=== PATIENT | male | born 1980 | race Caucasian/White ===

== ENCOUNTER 2021-12-13 11:36 | Emergency (ER) | payer SELFPAY ==
[~2021-12-13] VITALS: Ht 177.8 cm; Wt 98.0 kg
[2021-12-13] MEDS ORDERED: ASPIRIN CHEWABLE 81 MG TABLET. PO ONE (12:00)
[2021-12-13] MEDS ORDERED: IV NORMAL SALINE 1000ML BAG 1,000 ML IV ONE (12:00)
[2021-12-13] MEDS ORDERED: NITROGLYCERIN SUBLINGUAL 0.4 MG BOTTLE OF 25. SL PRN (12:00)
[2021-12-13] MEDS ORDERED: ONDANSETRON PF 4 MG/2 ML VIAL. IVP ONE (12:00)
[2021-12-13 12:05] LABS: BASO # 0.1 x10^3/uL (0.0-0.2); BASO % 1 % (0-3); EOS % 0 % (0-3); HEMATOCRIT 45.5 % (39.0-53.0); HEMOGLOBIN 15.9 g/dL (13.0-17.5); LYMPH % 9 % (24-48); MEAN CORPUSCULAR HEMOGLOBIN 31 pg (25-35); MEAN CORPUSCULAR HGB CONC 35 g/dL (31-37); MEAN CORPUSCULAR VOLUME 90 fL (79-100); MONO # 0.8 x10^3/uL (0.0-1.1); MONO % 7 % (0-9); NEUT # 9.8 x10^3/uL (1.8-7.7); NEUT % 84 % (31-73); PLATELET COUNT 316 x10^3/uL (140-400); RED BLOOD COUNT 5.08 x10^6/uL (4.30-5.70); RED CELL DISTRIBUTION WIDTH 13.5 % (11.5-14.5); WHITE BLOOD COUNT 11.7 x10^3/uL (4.0-11.0)
[2021-12-13 12:14] LABS: CALCIUM 8.9 mg/dL (8.5-10.1); CREATININE 0.9 mg/dL (0.7-1.3); GFR 92.1; POTASSIUM 3.9 mmol/L (3.5-5.1)
--- NOTE | 2021-12-13 12:16 | RAD ---
EXAMINATION: XR CHEST 1V CLINICAL HISTORY: Chest pain. EXAM DATE/TIME: 12/13/2021 12:00 PM COMPARISON: None FINDINGS: Lines, Tubes, and Devices: None. Cardiomediastinal Silhouette: Normal heart size. Lungs and Pleura: No evidence of focal airspace consolidation or pleural effusion. Pulmonary vasculat ure unremarkable. Bones and Soft Tissues: Degenerative changes in the thoracic spine. IMPRESSION: No evidence of acute cardiopulmonary abnormality. Electronically signed by: Young Casas DO (12/13/2021 12:13 PM) [id number]
[2021-12-13 12:20] LABS: ALBUMIN 4.5 g/dL (3.4-5.0); ALBUMIN/GLOBULIN RATIO 1.2 (1.0-1.7); TOTAL BILIRUBIN 0.4 mg/dL (0.2-1.0); TOTAL PROTEIN 8.4 g/dL (6.4-8.2)
--- NOTE | 2021-12-13 12:43 | PHYS DOC ---
Past Medical History Past Surgical History: No Surgical History Adult General Chief Complaint Chief Complaint: CHEST PAIN HPI HPI Patient is a 41 year old male presenting to the emergency department for evaluation of chest pain that he says started approximately 1030 this morning while he was at work at [employer]. He said he was walking and felt that he may have been exerting himself and he felt a tightness in his left lateral chest that caused him tingling in his left arm as well as nausea and diaphoresis but no vomiting or shortness of breath. He says there is no radiation and he does feel better since he is at rest. He says that he had a stress test in his 20s but no recent cardiac or stratification. Patient has a history of hypertension but ran out of his hydrochlorothiazide lisinopril and has not been on any medications. He denies hyperlipidemia or diabetes. He does smoke cigarettes and he thinks that his father may have heart disease but he made it sound as if he is not sure and he does not know him very well. He is in no acute distress with normal vital signs other than hypertension noted. Review of Systems Review of Systems Constitutional: Denies fever or chills [] Eyes: Denies change in visual acuity, redness, or eye pain [] HENT: Denies nasal congestion or sore throat [] Respiratory: Denies cough or shortness of breath [] Cardiovascular: +CP, diaphoresis GI: Denies abdominal pain.+ nausea. No vomiting, bloody stools or diarrhea [] : Denies dysuria or hematuria [] Musculoskeletal: Denies back pain or joint pain [] Integument: Denies rash or skin lesions [] Neurologic: Denies headache, focal weakness or sensory changes [] All other systems were reviewed and found to be within normal limits, except as documented in this note. Current Medications Current Medications Current Medications Medications (Trade) Dose Ordered Sig/Benny Start Time Stop Time Status Last Admin Dose Admin Aspirin (Aspirin Chewable) 324 mg 1X ONCE 12/13/21 12:00 12/13/21 12:01 DC 12/13/21 12:10 324 MG Hydrochlorothiazide (Microzide) 12.5 mg 1X ONCE 12/13/21 15:00 12/13/21 15:01 Lisinopril (Prinivil) 20 mg 1X ONCE 12/13/21 15:00 12/13/21 15:01 Nitroglycerin (Nitrostat) 0.4 mg PRN Q5MIN PRN 12/13/21 12:00 12/13/21 12:14 0.4 MG Ondansetron HCl (Zofran) 4 mg 1X ONCE 12/13/21 12:00 12/13/21 12:01 DC 12/13/21 12:11 4 MG Sodium Chloride 1,000 ml @ 1,000 mls/hr 1X ONCE 12/13/21 12:00 12/13/21 12:59 DC 12/13/21 12:11 1,000 MLS/HR Allergies Allergies Allergies Coded Allergies Type Severity Reaction Last Updated Verified No Known Drug Allergies 12/13/21 No Physical Exam Physical Exam Constitutional: Well developed, well nourished, no acute distress, non-toxic appearance. [] HENT: Normocephalic, atraumatic, bilateral external ears normal, oropharynx moist, no oral exudates, nose normal. [] Eyes: PERRLA, EOMI, conjunctiva normal, no discharge. [] Neck: Normal range of motion, no tenderness, supple, no stridor. [] Cardiovascular:Heart rate regular rhythm, no murmur [] Lungs & Thorax: Bilateral breath sounds clear to auscultation [] Abdomen: Bowel sounds normal, soft, no tenderness, no masses, no pulsatile masses. [] Skin: Warm, dry, no erythema, no rash. [] Back: No tenderness, no CVA tenderness. [] Extremities: No tenderness, no cyanosis, no clubbing, ROM intact, no edema. [] Neurologic: Alert and oriented X 3, normal motor function, normal sensory function, no focal deficits noted. [] Current Patient Data Vital Signs Vital Signs Date Time Temp Pulse Resp B/P (MAP) Pulse Ox O2 Delivery O2 Flow Rate FiO2 12/13/21 14:44 82 17 171/106 (127) 99 Room Air 12/13/21 11:44 98.5 98.5 Lab Values Laboratory Tests Test 12/13/21 11:50 12/13/21 14:08 White Blood Count 11.7 x10^3/uL (4.0-11.0) H Red Blood Count 5.08 x10^6/uL (4.30-5.70) Hemoglobin 15.9 g/dL (13.0-17.5) Hematocrit 45.5 % (39.0-53.0) Mean Corpuscular Volume 90 fL (79-100) Mean Corpuscular Hemoglobin 31 pg (25-35) Mean Corpuscular Hemoglobin Concent 35 g/dL (31-37) Red Cell Distribution Width 13.5 % (11.5-14.5) Platelet Count 316 x10^3/uL (140-400) Neutrophils (%) (Auto) 84 % (31-73) H Lymphocytes (%) (Auto) 9 % (24-48) L Monocytes (%) (Auto) 7 % (0-9) Eosinophils (%) (Auto) 0 % (0-3) Basophils (%) (Auto) 1 % (0-3) Neutrophils # (Auto) 9.8 x10^3/uL (1.8-7.7) H Lymphocytes # (Auto) 1.0 x10^3/uL (1.0-4.8) Monocytes # (Auto) 0.8 x10^3/uL (0.0-1.1) Eosinophils # (Auto) 0.0 x10^3/uL (0.0-0.7) Basophils # (Auto) 0.1 x10^3/uL (0.0-0.2) D-Dimer (Nicole) < 0.27 ug/mlFEU Sodium Level 140 mmol/L (136-145) Potassium Level 3.9 mmol/L (3.5-5.1) Chloride Level 102 mmol/L (98-107) Carbon Dioxide Level 28 mmol/L (21-32) Anion Gap 10 (6-14) Blood Urea Nitrogen 9 mg/dL (8-26) Creatinine 0.9 mg/dL (0.7-1.3) Estimated GFR (Cockcroft-Gault) 92.1 BUN/Creatinine Ratio 10 (6-20) Glucose Level 103 mg/dL (70-99) H Calcium Level 8.9 mg/dL (8.5-10.1) Total Bilirubin 0.4 mg/dL (0.2-1.0) Aspartate Amino Transferase (AST) 33 U/L (15-37) Alanine Aminotransferase (ALT) 35 U/L (16-63) Alkaline Phosphatase 87 U/L (46-116) Troponin I High Sensitivity 12 ng/L (4-75) 12 ng/L (4-75) XM-Mxf-Y-Type Natriuretic Peptide 40 pg/mL (0-124) Total Protein 8.4 g/dL (6.4-8.2) H Albumin 4.5 g/dL (3.4-5.0) Albumin/Globulin Ratio 1.2 (1.0-1.7) Lipase 57 U/L (73-393) L Laboratory Tests 12/13/21 11:50 Laboratory Tests 12/13/21 11:50 EKG EKG Sinus rhythm at 87 bpm with normal axis no deviation no ST elevation or depression and normal T waves with normal intervals Radiology/Procedures Radiology/Procedures [] Course & Med Decision Making Course & Med Decision Making Patient has a moderately suspicious story for ACS given it is exertional so we will check labs including a 2-hour troponin and reassess. Patient's 2-hour troponin is unchanged from prior patient says that he has been chest pain-free since given nitroglycerin. I told patient that I am somewhat concerned about him as he has a heart score equal to 2 even though that puts him at high lower risk I do not like how his blood pressure has been elevated here. I told patient I recommended that he be admitted to the hospital for further observation and treatment with likely stress test. Patient refuse stating that he feels well and would rather follow-up as an outpatient. I told patient why wanted to admit him and he verbalized understanding and accepted the risks of and disability. I told patient to follow-up with his primary care provider soon as possible for further cardiac or stratification and to come back to emergency department immediately with worsening pain shortness of breath or other general concerns. Patient aware and agreeable with plan and verbalized understanding of the above instructions. Of note I did tell him to not exert himself take an aspirin daily. I will write him for his home blood pressure medications which she said was lisinopril 20 and hydrochlorothiazide 12.5. Thea Disclaimer Thea Disclaimer This electronic medical record was generated, in whole or in part, using a voice recognition dictation system. Departure Departure Impression: Primary Impression: Chest pain on exertion Additional Impression: Hypertension Disposition: 01 HOME / SELF CARE / HOMELESS Condition: STABLE Referrals: NO PCP (PCP) Patient Instructions: Chest Pain (Nonspecific) Additional Instructions: Take 81 mg aspirin daily and do not exert yourself follow with primary care provider soon as possible and come back to emergency department with worsening pain shortness of breath or other general concerns. Thank you! Scripts Aspirin (ASPIRIN) 81 Mg Tab.chew 1 TAB PO DAILY, #30 TAB 0 Refills Prov: TOMAS CORONA DO 12/13/21 Lisinopril/Hydrochlorothiazide (LISINOPRIL-HCTZ 20-12.5 MG TAB) 1 Each Tablet 1 TAB PO DAILY, #30 TAB 0 Refills Prov: TOMAS CORONA DO 12/13/21 Problem Qualifiers Additional Impression: Hypertension Hypertension type: unspecified Qualified Codes: I10 - Essential (primary) hypertension TOMAS CORONA DO Dec 13, 2021 12:43
[2021-12-13] MEDS ORDERED: LISINOPRIL 10 MG TABLET PO ONE (15:00)
[2021-12-13] MEDS ORDERED: hydroCHLOROthiazide 12.5 MG TABLET PO ONE (15:00)
[2021-12-13] MEDS ORDERED: LISI1TAB37 PO (15:03)
[2021-12-13] MEDS ORDERED: ASPI-630 PO (15:03)
[2021-12-13 15:14] VITALS: BP 174/110
--- NOTE | 2021-12-14 10:22 | EKG ---
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
--- NOTE | 2021-12-14 10:23 | EKG ---
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
== END 2021-12-13 15:18 | disposition home or self-care (01) ==
LOC: ER 11:36
DX: R07.89 Other chest pain (principal); I10 Essential (primary) hypertension; R11.0 Nausea; R61 Generalized hyperhidrosis
CPT/HCPCS: 36415; 71045; 80053; 83690; 83880; 84484; 85025; 85379; 93005; 96361; 96374; 99285; J2405; J7030